=== PATIENT | male | born 1955 | race Two or more races ===

== ENCOUNTER → 2016-07-01 | Outpatient (CLI) | payer BC ==
[~2016-07-01] MED LIST: REGADENOSON 0.4 MG/5 ML SYRINGE IV ONE
--- NOTE | 2016-07-01 10:41 | EST ---
DATE OF SERVICE: 07/01/2016 AGE: 61Y SEX: M HT: 66" WT: 160 lbs. Lexiscan Cardiolite Stress Test *Heart Rate Blood Pressure *Rest: 68 Rest: 130/80 * *Max. Achieved: 110 Maximum BP: 142/80 85% PMHR: 135 100% PMHR: 159 *METS: - INDICATIONS: Chest pain. MEDICATIONS: - Baseline EKG revealed a normal sinus rhythm without significant ST-T changes. With Lexiscan administration, patient did not have any significant symptoms. Heart rate changed from 68 to 110 beats per minute and blood pressure changed from 130/80 to 142/80. EKG was unremarkable and patient was asymptomatic. By EKG criteria, this is an unremarkable Lexiscan stress test. The nuclear scan results, which are more pertinent, will be reported by the radiologist.
--- NOTE | 2016-07-01 12:17 | NM ---
EXAMINATION TYPE: NM stress lexiscan cardiolite DATE OF EXAM: 07/01/2016 10:48 AM COMPARISON: NONE HISTORY: Chest pain, R07.9 TECHNIQUE: After the intravenous administration of 10.23 mCi Tc 99m Sestamibi - Cardiolite resting S PECT images acquired 45 minutes post injection. The patient received 0.4mg Lexiscan, 26.7 mCi Tc 99m Sestamibi - Stress images obtained [address] injection FINDINGS: Review of stress and rest SPECT images demonstrates no distinct perfusion abnormality. Gated analysi s shows normal wall motion with an estimated left ventricular ejection fraction of 46 %. IMPRESSION: No scintigraphic evidence for reversible ischemia. Ejection fraction is 46%
== END | disposition home or self-care (01) ==
LOC: RADNMMAIN 07:55
PROVIDERS: ATTEND Family Medicine
DX: R07.9 Chest pain, unspecified (principal)
CPT/HCPCS: 93017; 78452; A9500; J2785

== ENCOUNTER 2021-02-27 10:06 | Day surgery (SDC) | payer BC, MEDICARE ==
[2021-02-23 09:21] VITALS: BMI 25.8
[~2021-02-27 10:06] MED LIST changes: +LACTATED RINGERS 1,000 ML IV SCH; +LIDOCAINE 1% (10MG/ML) FOR IV START INTRADERMA PRN; -REGADENOSON 0.4 MG/5 ML SYRINGE IV ONE
[2021-02-27 10:45] VITALS: RESP 16; TEMP 98.3
[2021-02-27] MEDS ORDERED: fentaNYL (PF) 50 MCG/ML 2 ML AMP ONE (11:13)
[2021-02-27] MEDS ORDERED: MIDAZOLAM 2 MG/2 ML VIAL ONE (11:13)
[2021-02-27] MEDS ORDERED: PROPOFOL 10 MG/ML 20 ML VIAL IV ONE (11:13)
--- NOTE | 2021-02-27 11:16 | P.GSHP ---
History of Present Illness H&P Date: 02/27/21 Chief Complaint: Colon cancer screening Patient here today for colonoscopy. He has never had one before. Mother with recent diagnosis of colon cancer. No bowel complaints. Past Medical History Past Medical History: GERD/Reflux Additional Past Medical History / Comment(s): Hx Covid in 09/03. History of Any Multi-Drug Resistant Organisms: MRSA Date of last positivie culture/infection: 2016 MDRO Source:: right thigh Past Surgical History: Hernia Repair Additional Past Surgical History / Comment(s): Hernia repair was at 6 months old. Past Anesthesia/Blood Transfusion Reactions: No Reported Reaction, Motion Sickness Additional Past Anesthesia/Blood Transfusion Reaction / Comment(s): "Have never had anesthesia". Past Psychological History: No Psychological Hx Reported Smoking Status: Never smoker Past Alcohol Use History: Occasional Past Drug Use History: None Reported - Past Family History Mother Family Medical History: Cancer Additional Family Medical History / Comment(s): Colon Cancer. Medications and Allergies Home Medications Medication Instructions Recorded Confirmed Type Fexofenadine/Pseudoephedrine 1 tab PO DAILY 02/23/21 02/27/21 History [Denia-D 24 Hour Tablet] Prevacid (Unknown Dose) 1 tab PO DAILY 02/23/21 02/27/21 History Allergies Allergy/AdvReac Type Severity Reaction Status Date / Time No Known Allergies Allergy Unverified 02/27/21 10:27 Surgical - Exam Vital Signs Temp Pulse Resp BP Pulse Ox 98.3 F 64 16 145/84 98 02/27/21 10:43 02/27/21 10:43 02/27/21 10:43 02/27/21 10:43 02/27/21 10:43 Physical exam: General: Well-developed, well-nourished HEENT: Normocephalic, sclerae nonicteric Abdomen: Nontender, nondistended Extremities: No edema Neuro: Alert and oriented Assessment and Plan (1) Colon cancer screening Narrative/Plan: Will proceed with colonoscopy at this time Current Visit: Yes Status: Acute Code(s): Z12.11 - ENCOUNTER FOR SCREENING FOR MALIGNANT NEOPLASM OF COLON SNOMED Code(s): 882861083
--- NOTE | 2021-02-27 11:31 | P.PCN ---
Date of Procedure: 02/27/21 Procedure(s) Performed: PREOPERATIVE DIAGNOSIS: Colon cancer screening, family history POSTOPERATIVE DIAGNOSIS: Transverse colon polyp PROCEDURE: Colonoscopy with snare polypectomy ANESTHESIA: MAC SURGEON: Phil Islas M.D. SPECIMENS: Transverse colon polyp ENDOSCOPIC PROCEDURE: The patient was placed on the endoscopy table in the left decubitus position. The Olympus colonoscope was inserted into the anus and passed under direct visualization to the base of the cecum. The appendiceal orifice was visualized. From that point the scope was slowly withdrawn inspecting all surfaces carefully. There were no neoplastic inflammatory or polypoid lesions throughout the cecum or ascending colon. In the transverse colon at 70 cm there was a sessile polyp that was 1-1.5 cm in length. This was removed in 3 small pieces using the snare with cautery technique. The remainder of the transverse descending sigmoid and rectum appeared normal. There was no visible diverticulosis. Digital rectal examination was normal. The patient was taken to the recovery room in stable condition per anesthesia guidelines. RECOMMENDATIONS: Await biopsy results. May require short-term follow-up colonoscopy pending pathology results.
[2021-02-27 12:06] VITALS: BP 122/79; PULSE 57
== END 2021-02-27 12:22 | disposition home or self-care (01) ==
LOC: ORWHC2ENDO 10:06
PROVIDERS: ATTEND Surgery
DX: Z12.11 Encounter for screening for malignant neoplasm of colon (principal); D12.3 Benign neoplasm of transverse colon; K21.9 Gastro-esophageal reflux disease without esophagitis; Z80.0 Family history of malignant neoplasm of digestive organs; Z86.16 Personal history of COVID-19
CPT/HCPCS: 45385; 88305; J2250; J3010; J2704

== ENCOUNTER 2022-04-02 08:07 | Day surgery (SDC) | payer MEDICARE ==
[2022-04-01 08:50] VITALS: BMI 24.3
[~2022-04-02 08:07] MED LIST changes: -LIDOCAINE 1% (10MG/ML) FOR IV START INTRADERMA PRN
[2022-04-02 08:27] VITALS: RESP 16; TEMP 98.1
[2022-04-02] MEDS ORDERED: LIDOCAINE 1% (10MG/ML) FOR IV START INTRADERMA ONE (08:36)
[2022-04-02] MEDS ORDERED: LIDOCAINE 2% INJ 20 MG/ML (2 ML VIAL) ONE (08:59)
[2022-04-02] MEDS ORDERED: PROPOFOL 10 MG/ML 20 ML VIAL IV ONE (08:59)
--- NOTE | 2022-04-02 09:03 | P.GSHP ---
History of Present Illness H&P Date: 04/02/22 Chief Complaint: History of colon polyp 66-year-old male here today for colonoscopy. Patient had a colonoscopy 1 year ago and was found to have a 1.5 cm high-grade dysplasia transverse colon polyp. Patient is family history of colon cancer his mother. No new complaints. Past Medical History Past Medical History: GERD/Reflux Additional Past Medical History / Comment(s): Hx Covid in 09/03. History of Any Multi-Drug Resistant Organisms: MRSA Date of last positivie culture/infection: 2016 MDRO Source:: right thigh Past Surgical History: Hernia Repair Additional Past Surgical History / Comment(s): Hernia repair was at 6 months old. Past Anesthesia/Blood Transfusion Reactions: No Reported Reaction, Motion Sickness Additional Past Anesthesia/Blood Transfusion Reaction / Comment(s): "Have never had anesthesia". Smoking Status: Never smoker - Past Family History Mother Family Medical History: Cancer Additional Family Medical History / Comment(s): Colon Cancer. Medications and Allergies Home Medications Medication Instructions Recorded Confirmed Type Fexofenadine/Pseudoephedrine 1 tab PO DAILY 02/23/21 04/02/22 History [Denia-D 24 Hour Tablet] Lansoprazole [Prevacid 24Hr] 15 mg PO DAILY 04/01/22 04/02/22 History Allergies Allergy/AdvReac Type Severity Reaction Status Date / Time No Known Allergies Allergy Unverified 04/02/22 08:24 Surgical - Exam Vital Signs Temp Pulse Resp BP Pulse Ox 98.1 F 82 16 148/90 93 L 04/02/22 08:18 04/02/22 08:18 04/02/22 08:18 04/02/22 08:18 04/02/22 08:18 Physical exam: General: Well-developed, well-nourished HEENT: Normocephalic, sclerae nonicteric Abdomen: Nontender, nondistended Extremities: No edema Neuro: Alert and oriented Assessment and Plan (1) Colon polyp Narrative/Plan: Proceed with colonoscopy at this time Current Visit: Yes Status: Acute Code(s): K63.5 - POLYP OF COLON SNOMED Code(s): 07310743
--- NOTE | 2022-04-02 09:20 | P.PCN ---
Date of Procedure: 04/02/22 Procedure(s) Performed: PREOPERATIVE DIAGNOSIS: History of polyp POSTOPERATIVE DIAGNOSIS: Normal exam PROCEDURE: Colonoscopy ANESTHESIA: MAC SURGEON: Phil Islas M.D. SPECIMENS: None ENDOSCOPIC PROCEDURE: The patient was placed on the endoscopy table in the left decubitus position. The Olympus colonoscope was inserted into the anus and passed under direct visualization to the base of the cecum. The appendiceal orifice was visualized. From that point the scope was slowly withdrawn inspecting all surfaces carefully. There were no neoplastic inflammatory or polypoid lesions throughout the cecum, ascending, transverse, descending, sigmoid and rectum. There was no visible diverticulosis noted. The patient's prep was excellent. The patient's colon was quite tortuous however. Digital rectal examination was normal. The patient was taken to the recovery room in stable condition per anesthesia guidelines. RECOMMENDATIONS: Resume diet. Repeat colonoscopy 3 years.
[2022-04-02] MEDS ORDERED: IV FLUID CONTINUATION 1,000 ML IV ONE (09:25)
[2022-04-02 09:44] VITALS: BP 128/76; PULSE 56
== END 2022-04-02 10:20 | disposition home or self-care (01) ==
LOC: ORWHC2ENDO 08:07
PROVIDERS: ATTEND Surgery
DX: Z86.010 Personal history of colon polyps (principal); Z12.11 Encounter for screening for malignant neoplasm of colon
CPT/HCPCS: J2704; J2001; G0105; 45378

== ENCOUNTER 2022-06-09 15:43 | Emergency (ER) | payer MEDICARE ==
[2022-06-09 15:47] VITALS: BP 176/96; PULSE 83; RESP 20; TEMP 98
[2022-06-09] MEDS ORDERED: DIPH,PERTUS(ACELL)TETVAC-LF 0.5 ML VIAL IM ONE (16:04)
--- NOTE | 2022-06-09 16:08 | ED ---
General Adult HPI - General Chief complaint: Wound/Laceration Stated complaint: L hand finger lac Time Seen by Provider: 06/09/22 15:52 Source: patient, RN notes reviewed Mode of arrival: ambulatory Limitations: no limitations - History of Present Illness Initial comments: 67 year old male presents to the emergency department with a laceration. He was putting together a metal workbench when the two pieces of metal slipped and he cut his finger. He is unsure of when his last tetanus vaccine was. He denies numbness, tingling. - Related Data Home Medications Medication Instructions Recorded Confirmed Fexofenadine/Pseudoephedrine 1 tab PO DAILY 02/23/21 04/02/22 [Denia-D 24 Hour Tablet] Lansoprazole [Prevacid 24Hr] 15 mg PO DAILY 04/01/22 04/02/22 Allergies Allergy/AdvReac Type Severity Reaction Status Date / Time No Known Allergies Allergy Unverified 06/09/22 15:47 Review of Systems ROS Statement: Those systems with pertinent positive or pertinent negative responses have been documented in the HPI. ROS Other: All systems not noted in ROS Statement are negative. Past Medical History Past Medical History: GERD/Reflux Additional Past Medical History / Comment(s): Hx Covid in 09/03. History of Any Multi-Drug Resistant Organisms: MRSA Date of last positivie culture/infection: 2016 MDRO Source:: right thigh Past Surgical History: Hernia Repair Additional Past Surgical History / Comment(s): Hernia repair was at 6 months old. Past Anesthesia/Blood Transfusion Reactions: No Reported Reaction, Motion Sickness Additional Past Anesthesia/Blood Transfusion Reaction / Comment(s): "Have never had anesthesia". Past Psychological History: No Psychological Hx Reported Smoking Status: Never smoker Past Alcohol Use History: None Reported Past Drug Use History: None Reported - Past Family History Mother Family Medical History: Cancer Additional Family Medical History / Comment(s): Colon Cancer. General Exam Limitations: no limitations General appearance: alert, in no apparent distress Head exam: Present: atraumatic, normocephalic, normal inspection Eye exam: Present: normal appearance, PERRL, EOMI. Absent: scleral icterus, conjunctival injection, periorbital swelling ENT exam: Present: normal exam, mucous membranes moist Neck exam: Present: normal inspection. Absent: tenderness, meningismus, lymphadenopathy Respiratory exam: Present: normal lung sounds bilaterally. Absent: respiratory distress, wheezes, rales, rhonchi, stridor Cardiovascular Exam: Present: regular rate, normal rhythm GI/Abdominal exam: Present: soft, normal bowel sounds. Absent: distended, tenderness, guarding, rebound, rigid Extremities exam: Present: normal inspection, full ROM, normal capillary refill. Absent: tenderness, pedal edema, joint swelling, calf tenderness Left Hand L/R Front: 1 - laceration (1 cm superficial laceration, distal NVI 2+ radial pulses,) Course Vital Signs 06/09/22 15:45 Temperature 98 F Pulse Rate 83 Respiratory 20 Rate Blood Pressure 176/96 O2 Sat by Pulse 99 Oximetry Medical Decision Making - Medical Decision Making This is 67 a year old female presenting to the emergency department for a laceration . Patient was seen and evaluated, physical exam reveals a small, laceration that does not require suture repair. I interpreted the fol lowing: Lab work reveals . I discussed the results in detail with the patient and return precautions were discussed. Patient verbalized understanding and is agreeable with plan for discharge. I discussed the case with FRITZ Whitehead who agrees with plan for discharge Disposition Clinical Impression: Laceration Disposition: HOME SELF-CARE Condition: Serious Instructions (If sedation given, give patient instructions): Laceration (ED) Additional Instructions: Return to the nearest emergency department if symptoms persist persist. Is patient prescribed a controlled substance at d/c from ED?: No Referrals: Price Akbar MD [Primary Care Provider] - 1-2 days Time of Disposition: 16:08
== END 2022-06-09 16:13 | disposition home or self-care (01) ==
LOC: EC 15:43
DX: S61.213A Laceration without foreign body of left middle finger without damage to nail, initial encounter (principal); K21.9 Gastro-esophageal reflux disease without esophagitis; Z79.899 Other long term (current) drug therapy; W26.0XXA Contact with knife, initial encounter
CPT/HCPCS: 12001; 90471; 90715; 99282

== ENCOUNTER 2024-03-15 08:50 | Day surgery (SDC) | payer MEDICARE ==
[2024-03-11 11:13] VITALS: BMI 25.3
--- NOTE | 2024-03-15 08:40 | P.GSHP ---
History of Present Illness H&P Date: 03/15/24 Chief Complaint: Left inguinal hernia 68-year-old male here for elective repair left inguinal hernia. Gradually enlarging over the last few years. Sore at times. Patient with history of repair right inguinal hernia. Past Medical History Past Medical History: GERD/Reflux Additional Past Medical History / Comment(s): left inguinal hernia/has had pressure on rt side too,seasonal allergies, Hx Covid in 09/03,05/2023 History of Any Multi-Drug Resistant Organisms: MRSA Date of last positivie culture/infection: 2016 MDRO Source:: right thigh Past Surgical History: Hernia Repair Additional Past Surgical History / Comment(s): Hernia repair was at 6 months old, colonoscopies Past Anesthesia/Blood Transfusion Reactions: No Reported Reaction, Motion Sickness Additional Past Anesthesia/Blood Transfusion Reaction / Comment(s): no hx blood transfusion Smoking Status: Never smoker - Past Family History Mother Family Medical History: Cancer Additional Family Medical History / Comment(s): Colon Cancer. Medications and Allergies Home Medications Medication Instructions Recorded Confirmed Type Lansoprazole [Prevacid 24Hr] 15 mg PO QAM 04/01/22 03/11/24 History Elderberry Fruit [Elderberry] 350 mg PO DAILY 03/11/24 03/11/24 History Fexofenadine HCl [Denia Allergy] 180 mg PO 1800 03/11/24 03/11/24 History Multivit-Mins/Iron/Folic/Lycop 1 each PO DAILY 03/11/24 03/11/24 History [Centrum Men's Tablet] Allergies Allergy/AdvReac Type Severity Reaction Status Date / Time No Known Allergies Allergy Unverified 03/11/24 10:49 Surgical - Exam Physical exam: General: Well-developed, well-nourished HEENT: Normocephalic, sclerae nonicteric Abdomen: Nontender, nondistended reducible left inguinal hernia present, no palpable hernia on right Extremities: No edema Neuro: Alert and oriented Assessment and Plan (1) Left inguinal hernia Narrative/Plan: 68-year-old male with left inguinal hernia. Will proceed with laparoscopic da Missy assisted repair left inguinal hernia with mesh, possible open, possible bilateral. Risks of bleeding, infection, recurrence, bladder and bowel injury, numbness, nerve injury, conversion to an open procedure were discussed with the patient. The patient understands and wishes to proceed. Status: Acute Code(s): K40.90 - UNIL INGUINAL HERNIA, W/O OBST OR GANGR, NOT SPCF RECUR SNOMED Code(s): 094347638
[2024-03-15] MEDS ORDERED: droPERidol 5 MG/2 ML VIAL IVP PRN (08:59)
[2024-03-15] MEDS ORDERED: HYDROmorphone 0.5 MG/0.5 ML SYRINGE IVP PRN (08:59)
[2024-03-15] MEDS: ACETAMINOPHEN TAB 500 MG TAB PO PRN (09:18)
[2024-03-15] MEDS: IV FLUID CONTINUATION 1,000 ML IV ONE (09:25)
[2024-03-15] MEDS: ONDANSETRON 4 MG/2 ML VIAL IVP ONE (09:27)
[2024-03-15] MEDS: LACTATED RINGERS 1,000 ML IV SCH (09:27)
[2024-03-15] MEDS: DEXAMETHASONE SOD PHOSPHATE 4 MG/ML 1 ML VIAL IV ONE (09:27)
[2024-03-15] MEDS: LIDOCAINE 1% (10MG/ML) FOR IV START INTRADERMA PRN (09:27)
[2024-03-15] MEDS: HEPARIN SODIUM,PORCINE 5,000 UNIT/ML 1 ML VIAL SQ PRN (09:29)
[2024-03-15 09:34] LABS: Basophils % (A) 1 %; Eosinophils # (A) 0.1 k/uL (0-0.7); Eosinophils % (A) 2 %; HCT 46.7 % (39.0-53.0); HGB 15.6 gm/dL (13.0-17.5); Lymphocytes # (A) 1.9 k/uL (1.0-4.8); Lymphocytes % (A) 35 %; MCH 31.4 pg (25.0-35.0); MCHC 33.3 g/dL (31.0-37.0); MCV 94.2 fL (80.0-100.0); Mean Platelet Volume 7.5; Monocytes # (A) 0.5 k/uL (0-1.0); Monocytes % (A) 9 %; Neutrophils # (A) 2.7 k/uL (1.3-7.7); Neutrophils % (A) 50 %; Platelet Count 177 k/uL (150-450); RBC 4.96 m/uL (4.30-5.90); RDW 12.3 % (11.5-15.5); WBC 5.5 k/uL (3.8-10.6)
[2024-03-15] MEDS: TAMSULOSIN 0.4 MG CAP.ER.24H PO STA (10:15)
[2024-03-15] MEDS ORDERED: SUCCINYLCHOLINE CHLORIDE 200 MG/10 ML VIAL IV ONE (10:40)
[2024-03-15] MEDS ORDERED: GLYCOPYRROLATE 0.2 MG/ML 2 ML VIAL ONE (10:40)
[2024-03-15] MEDS ORDERED: LIDOCAINE 1% INJ 10MG/ML (20 ML MDV) ONE (10:40)
[2024-03-15] MEDS ORDERED: ROCURONIUM 10 MG/ML (5 ML VIAL) IV ONE (10:40)
[2024-03-15] MEDS ORDERED: fentaNYL (PF) 50 MCG/ML 2 ML AMP ONE (10:40)
[2024-03-15] MEDS ORDERED: NEOSTIGMINE 1 MG/ML 10 ML VIAL ONE (10:40)
[2024-03-15] MEDS ORDERED: PROPOFOL 10 MG/ML 20 ML VIAL IV ONE (10:40)
[2024-03-15] MEDS: BUPIVACAINE (PF) 0.25% 30 ML VIAL SQ ONE (11:17)
[2024-03-15] MEDS: LACTATED RINGERS 1,000 ML IV ONE (12:17)
--- NOTE | 2024-03-15 12:33 | P.OP ---
Date of Procedure: 03/15/24 Procedure(s) Performed: PREOPERATIVE DIAGNOSIS: Left inguinal hernia POSTOPERATIVE DIAGNOSIS: Left indirect inguinal hernia PROCEDURE: Laparoscopic repair left inguinal hernia with mesh using da Missy assistance SURGEON: Dr. Islas ANESTHESIA: General OPERATIVE PROCEDURE DETAILS: Patient was placed in the operating table in the supine position. The patient was placed under general anesthesia. The abdomen was prepped and draped in usual sterile fashion. A small curvilinear supraumbilical incision was made. The fascia was retracted anteriorly with Klaus forceps. The Veress needle was inserted. The saline drop test was normal. Insufflation took place to 15 mmHg. An 8 mm trocar was placed into the peritoneal cavity. 2 additional 8 mm trochars were placed in the right upper quadrant and left upper quadrant under visualization. The robotic arms were then brought in and docked into place. The fenestrated bipolar was used in the left arm and the laparoscopic xander was utilized in the right arm. A 30 8 mm scope was used in the up position. The peritoneal cavity was inspected. Patient had an obvious left-sided hernia. This was indirect in nature. No hernia on the right was seen. The peritoneum was incised in a horizontal fashion cephalad to the internal inguinal ring. Following that careful dissection of the preperitoneal space took place. This took place using both electrocautery, sharp dissection but primarily blunt dissection. Visualization of the pubic tubercle and Cornelius's ligament took place medially. Full dissection took place laterally as well. The hernia sac was fully dissected. There was no visible cord lipoma penetrating through the internal inguinal ring. Once we had adequate space the [id number] Progrip mesh was advanced into the preperitoneal space and flattened out appropriately to cover all potential hernia sites. The mesh was sutured medially to Cornelius's ligament using a running 3-0 absorbable V-Loc suture and this was extended anteriorly to the midline. The peritoneal defect was then closed using a absorbable 2-0 VLok suture. The hernia sac was incorporated into the peritoneal closure to help prevent future recurrence. The pneumoperitoneum was then evacuated. The skin of all 3 sites was closed using a 4-0 Monocryl stitch. Skin glue was then applied. TYPE OF MESH USED: 15 x 10 cm ProGrip LOCATION OF MESH: Preperitoneal FIXATION: Absorbable 3 oh V-Loc PREOPERATIVE DISCUSSION ON SMOKING CESSASTION: Yes PREOPERATIVE DISCUSSION ON MORBID OBESITY: Yes PREOPERATIVE DISCUSSION ON APPROPRIATE USE OF NARCOTIC USE: Yes PREOPERATIVE EDUCATION: Multi Modal, Smoking Cessation and Weight Loss with BMI over 35. DISPOSITION: Stable to recovery room
[2024-03-15 12:34] VITALS: TEMP 97.5
[2024-03-15 16:00] VITALS: BP 112/65; PULSE 65; RESP 18
[2024-03-15] MEDS ORDERED: IBUPROFEN 600 MG TAB PO SCH (16:00)
[2024-03-15] MEDS ORDERED: ACETAMINOPHEN TAB 325 MG TAB PO SCH (18:00)
== END 2024-03-15 16:18 | disposition home or self-care (01) ==
LOC: OR 08:50
PROVIDERS: ATTEND Surgery
DX: K40.90 Unilateral inguinal hernia, without obstruction or gangrene, not specified as recurrent
CPT/HCPCS: 49650; 85025; S2900